=== PATIENT | female | born 1995 | race Caucasian/White ===

== ENCOUNTER 2024-02-19 07:45 | Day surgery (SDC) | payer BC ==
--- NOTE | 2024-02-13 08:18 | NUR ---
PT CALLED AND EXPLAINED THAT SHE THOUGHT HER PRE-ADMIT WAS VIA PHONE. EXPLAINED THAT IT WAS INPERSON. DEHORNER TOLD PT GIVE ME 5 MINUTES AND I GET THE ORDERS AND CALL HER BACK. WHEN CALLED PT BACK PHONE BUSY. TRYED 4 DIFFERENT TIMES AND PHONE REMAINS BUSY. CALL INTO DR MCNAIR OFFICE AND EXPLAINED THE ISSUE. THEY WILL TALK WITH PT AND DEHORNER WILL CONTIOUE TO TRY AND CALL OFFICE AT BEFORE NOON TO LEFT THEM KNOW IF PT WAS REACHED.
--- NOTE | 2024-02-13 08:36 | NUR ---
WAS ABLE TO REACH PT AND COMPLETE PHONE PRE ADMIT. EXPLAINED THAT SHE WILL STILL NEED TO COME TO THE HOSPITAL AND HAVE LABS AND EKG COMPLETED. ALSO THESE NEED TO BE DONE BY THE 24 AND IF NOT ON THE MORING OF SURGERY IF SHE HAS NOT COME INTO THE HOSUITAL SHE WILL NEED TO ARRIVE THE MORNING OF SURGERY AT 07:00 TO HAVE THE LABS AND EKG COMPLETED ON THE 18 OF FEBRUARY.
[~2024-02-19] VITALS: Ht 175.3 cm; Wt 151.4 kg
[~2024-02-19 07:45] MED LIST: ADDERALL 10 MG10 MG PO; CEFAZOLIN SODIUM 3 GM/30 ML SYR IV SCH; HEParin SOD (PORCINE) 5,000 UNIT/0.5 ML SYR SUB-Q SCH; IBLOOD GLUCOSE TEST STRIP 1 EA TEST VI PRN; LACTATED RINGER'S 1,000 ML IV SCH; LIDOCAINE HCL 1% 5 ML SDV INJ ONE; MILI 0.25-0.031 EACH PO; PRILOSEC OTC20 MG PO; SODIUM CHLORIDE 0.9% 40 ML IV ONE; WELLBUTRIN XL300 MG PO; iopamidoL 30 ML VIAL ONE
[2024-02-19 08:11] VITALS: BP 150/89
[2024-02-19] MEDS ORDERED: VENTOLIN HFA18 GM INH (08:16)
[2024-02-19] MEDS ORDERED: ROCURONIUM BROMIDE 50 MG/5 ML SYR ONE ×2 (09:12→10:12)
[2024-02-19] MEDS ORDERED: SUCCINYLCHOLINE IN 0.9% NACL 200 MG/10 ML SYRINGE ONE (09:12)
[2024-02-19] MEDS ORDERED: dexmedeTOMIDine HCl 200 MCG/2 ML VIAL ONE (09:12)
[2024-02-19] MEDS ORDERED: ondansetron HCL 4 MG/2 ML VIAL ONE (09:12)
[2024-02-19] MEDS ORDERED: DEXAMETHASONE SOD PHOS 4 MG/ML VIAL ONE (09:12)
[2024-02-19] MEDS ORDERED: SUGAMMADEX SODIUM 200 MG/2 ML ML ONE (09:12)
[2024-02-19] MEDS ORDERED: KETOROLAC TROMETHAMINE 30 MG/ML VIAL ONE (09:12)
[2024-02-19] MEDS ORDERED: LIDOCAINE HCL 2% 5 ML SDV ONE (09:12)
[2024-02-19] MEDS ORDERED: ACETAMINOPHEN 1,000 MG/100 ML VIAL ONE (09:12)
[2024-02-19] MEDS ORDERED: fentaNYL citrate 100 MCG/2 ML VIAL ONE ×2 (09:12→09:54)
[2024-02-19] MEDS ORDERED: propofoL 200 MG/20 ML VIAL ONE (09:12)
[2024-02-19] MEDS ORDERED: LIDOCAINE HCL 2% 20 MG/ML VIAL INJ ONE (09:13)
[2024-02-19] MEDS ORDERED: MIDAZOLAM HCL 2 MG/2 ML VIAL ONE (09:13)
[2024-02-19] MEDS ORDERED: KETAMINE in NS 50 MG/5 ML SYR ONE (09:13)
[2024-02-19] MEDS ORDERED: SCOPOLAMINE 1 MG/3 DAYS PATCH 1 EACH TDSY ONE (09:23)
[2024-02-19] MEDS ORDERED: ondansetron HCL 4 MG/2 ML VIAL IV PRN (10:00)
[2024-02-19] MEDS ORDERED: droPERidol 5 MG/2 ML VIAL IV PRN (10:00)
[2024-02-19] MEDS ORDERED: HYDROmorphone HCL 1 MG/ML SYR IV PRN (10:00)
[2024-02-19] MEDS ORDERED: PROCHLORPERAZINE EDISYLATE 10 MG/2 ML VIAL IV PRN (10:00)
[2024-02-19] MEDS ORDERED: NALOXONE HCL 0.4 MG SYR IV PRN ×2 (10:00→11:30)
[2024-02-19] MEDS ORDERED: IBLOOD GLUCOSE TEST STRIP 1 EA TEST VI PRN (10:00)
[2024-02-19] MEDS ORDERED: fentaNYL citrate 50 MCG/ML SDV IV PRN (10:00)
[2024-02-19] MEDS ORDERED: LACTATED RINGER'S 1,000 ML IV ONE (10:24)
--- NOTE | 2024-02-19 11:05 | NUR ---
02/19/24 1105 Marianne Chavez 1100-PATIENT ARRIVED TO PACU ON 6L MASK NONAROUSABLE ORAL AIRWAY IN PLACE RR EVEN. HOB ELEVATED. SR. IVF INFUSING. 4 LAP SITES TO ABDOMEN WITH SCANT AMT OF SHADOWING.
[2024-02-19] MEDS ORDERED: OXYCODON-ACETA1 EAC2 PO (11:25)
[2024-02-19] MEDS ORDERED: ACETAMINOPHEN500 MG PO (11:25)
[2024-02-19] MEDS ORDERED: IBUPROFEN600 MG PO (11:25)
[2024-02-19] MEDS ORDERED: ACETAMINOPHEN 500 MG TAB PO PRN (11:30)
[2024-02-19] MEDS ORDERED: OXYCODONE/APAP 7.5/325 TAB PO PRN (11:30)
[2024-02-19] MEDS ORDERED: IBUPROFEN 600 MG TAB PO PRN (11:30)
[2024-02-19] MEDS ORDERED: LACTATED RINGER'S 1,000 ML IV SCH (11:30)
[2024-02-19 11:58] VITALS: BP 124/64
--- NOTE | 2024-02-19 12:07 | NUR ---
1145 PT ARRIVED TO DAY SURGERY FROM PACU VIA STRECHER. PT AWAKE AND ORIENTED, BREATHING EQUAL AND UNLABORED. REPORT TAKEN FROM MICHELLE URBINA. PT REPORTS BEING HOT AND NAUSESOUS. COLD AIR ON PATIENT, AND COLD WASH CLOTH ON PT FOREHEAD. PT ABLE TO AMBULATE TO BATHROOM AND VOID 500 MLS. IV ASSESSED. VITALS TAKEN. 1205 PT IN BED WITH CALL LIGHT WITHIN REACH, ICE WATER AT BEDSIDE, JELLO AT BEDSIDE AND FAMILY AT BEDSIDE. NO FUTHER QUESTIONS AT THIS TIME. PT SPOUSE GIVEN PRESCRIPTION.
[2024-02-19 12:43] VITALS: BP 142/85
--- NOTE | 2024-02-19 12:56 | NUR ---
1245 HOURLY ROUNDING DONE. VITALS TAKEN. PT REPORTS NO NAUSEA. PT REPORTS TOLERABLE 4/10 PAIN. PT HAS MODERATE AMOUNT OF BLEEDING AT SURGICAL SITES, NO FRESH BLEEDING. PT HAS BEEN ABLE TO TOLERATE PO FLUIDS AND JELLO AND ABLE TO VOID. 1255 PT GETTING DRESSED WITH MOTHER'S ASSISTANCE. PT HAS CALL LIGHT WITHIN REACH. PT SPOUSE HAS PRESCRIPTION.
--- NOTE | 2024-02-19 13:10 | NUR ---
1258 IV DISCONTINUED FOR PT DISCHARGE. 1300 PT DISCHARGED FROM DAY SURGERY ROOM 3 VIA WHEELCHAIR TO THE FRONT OF THE HOSPITAL TO PT'S MOTHER'S CAR.
--- NOTE | 2024-02-22 17:49 | PATH ---
[facility] [address] [place], [place] [address] Signed SPECIMEN(S): A GALLBLADDER AND GALLSTONES SPECIMEN SOURCE: A. GALLBLADDER AND GALLSTONES CLINICAL HISTORY: Symptomatic cholelithiasis FINAL PATHOLOGIC DIAGNOSIS: Gallbladder and gallstones: - Chronic calculous cholecystitis. JVR:hamida MICROSCOPIC EXAMINATION: Histologic sections of all submitted blocks are examined by light microscopy. These findings, together with the gross examination, support the pathologic diagnosis. GROSS DESCRIPTION: The specimen, labeled and designated "McMurphy, gallbladder and gallstones," is received in formalin and consists of Specimen: Previously opened gallbladder. Dimensions: 8.5 x 4.0 x 2.0 cm. Serosa: [place]-elizabeth and smooth. Cystic Duct: Unobstructed, margin inked black and shaved. Calculi: Multiple yellow-elizabeth multifaceted calculi (1.0-1.5 cm in greatest dimension, and 6.0 x 6.0 x 2.5 cm in aggregate). Mucosa: [place]-brown and velvety/attenuated. Wall thickness: 0.3-0.5 cm. Lymph node: No pericystic lymph nodes are grossly identified. Additional: None. Tool Programmer sections are submitted in (A1). VB (under the direct supervision of a pathologist) The Gross Description was prepared using a voice recognition system. The report was reviewed for accuracy; however, sound-alike word errors, addition and/or deletions may occur. If there is any question about this report, please contact Client Services. ADDITIONAL NOTES: Immunohistochemical and/or in situ hybridization studies if performed in this case included appropriate positive controls that reacted as expected. This PATIENT NAME: ZBIGNIEW CHRIS PATHOLOGY DATE OF : [birth year] REPORT #: [id number] PHYSICIAN: BRANDIE PATHOLOGY PCP: MARTI PEDERSEN MD REPORT IS CONFIDENTIAL AND NOT TO BE RELEASED WITHOUT AUTHORIZATION [facility] [address] [facility] [place] [address] Signed test was developed and its performance characteristics determined by [facility]. It has not been cleared or approved by the U.S. Food and Drug Administration. The FDA has determined that such clearance or approval is not necessary. This test is used for clinical purposes. It should not be regarded as investigational or for research. [facility] is certified under the Clinical Laboratory Improvement Amendments of 1988 (CLIA) as qualified to perform high complexity clinical laboratory testing. PERFORMING LABORATORY: Technical component was performed by [facility], [address] [place] [id number] (CLIA# [id number]). Professional interpretation was performed by [facility], [address] [place] [id number] (CLIA#: [id number]). Diagnostician: Ritesh Hoffman MD Pathologist Electronically Signed 02/22/2024 Copies: ~ PATIENT NAME: ZBIGNIEW CHRIS PATHOLOGY DATE OF : [birth year] REPORT #: [id number] PHYSICIAN: BRANDIE RICO PCP: MARTI PEDERSEN MD REPORT IS CONFIDENTIAL AND NOT TO BE RELEASED WITHOUT AUTHORIZATION
--- NOTE | 2024-02-23 13:20 | OR ---
[facility] [address] [place], [place] [address] Signed DATE OF OPERATION: 02/19/2024 SURGEON: Allegra Mcnair MD PREOPERATIVE DIAGNOSES: 1. Chronic calculous cholecystitis. 2. Morbid obesity. POSTOPERATIVE DIAGNOSES: 1. Chronic calculous cholecystitis. 2. Morbid obesity. PROCEDURES: 1. Laparoscopic cholecystectomy with intraoperative cholangiogram. 2. Surgeon-directed fluoroscopy. ANESTHESIA: General endotracheal, Stephen Gimenez SENIOR C WEB DEVELOPER and local 10 mL of 0.25% Marcaine with epinephrine. INDICATION: This 29-year-old white woman is a patient of Dr. Marti Chirinos. She has been noted by Dr. Chirinos to have epigastric and generally left upper abdominal pain. The symptoms occur twice a week. The symptoms are worsened with fatty food. She has had similar issues years ago for which upper endoscopy and colonoscopy were performed and were considered normal. She has been taking omeprazole, but with little benefit. She underwent an evaluation at [facility] in the distant past for these symptoms and underlying diagnosis was never defined. The patient recently underwent a gallbladder ultrasound under the direction of Dr. Chirinos performed on December 25, 2023 showing multiple large gallstones without signs of acute calculous cholecystitis. She does have family history of biliary disease including her mother having undergone cholecystectomy (Lou Chris). She is 340 pounds and has a BMI of 50.2. She is admitted at this time to undergo cholecystectomy preferred by a laparoscopic approach. She understands the risk of bleeding, infection, bile duct injury, need for open procedure and most importantly failure to cure her symptoms. Understanding this, she wished to proceed. FINDINGS: The gallbladder was chronically inflamed and somewhat distended. The liver itself was surprisingly normal. Cholangiogram was normal. The gallbladder once excised had multiple dark yellow green multifaceted gallstones. There were no other findings of Electronically Signed By: ALLEGRA MCNAIR MD 02/23/24 1320 PATIENT NAME: ZBIGNIEW CHRIS OPERATIVE REPORT DATE OF : [birth year] REPORT #: [id number] PHYSICIAN: ALLEGRA MCNAIR MD PCP: MARTI CHIRINOS MD REPORT IS CONFIDENTIAL AND NOT TO BE RELEASED WITHOUT AUTHORIZATION [facility] [address] [place], [place] [address] Signed note. PROCEDURE IN DETAIL: The patient was brought to the operating room, given a general endotracheal anesthetic. Preoperative antibiotic Ancef was given. Sequential compression device stockings were used and heparin subcutaneously administered. The abdomen was prepared with chlorhexidine solution and draped sterilely. She had a rather obese abdomen. An infraumbilical incision was made and using an open Meaghan cannula technique, the abdomen was entered and pneumoperitoneum achieved to a level of 14 mmHg of carbon dioxide gas. Intra-abdominal inspection showed no sign of ascites or carcinomatosis. The gallbladder was obscured from view largely. Three additional trocars were placed in usual configuration in the subxiphoid, right midclavicular, and right anterior axillary line. The gallbladder was grasped and elevated cephalad. The liver was surprisingly normal and did not really have much in the way of fatty infiltration and certainly no blunted liver edge. The infundibulum was grasped and retracted laterally and using blunt and electrocautery dissection the triangle of Calot was dissected free ultimately identifying well the cystic duct. A clip was applied across gallbladder cystic duct junction. A transverse choledochotomy was made at the cystic duct. Clips have been applied to few pericholecystic arterial branches. Egress of clear bile was noted from the cystic duct. Using an Severino type cholangiocatheter, intraoperative cholangiography was undertaken showing free flow of contrast in biliary tree with prompt emptying into the duodenum. The cystic duct itself was relatively generous in size. There was no sign of filling defect biliary anomalies or other problem. The catheter was removed. The cystic duct was clipped several times to assure complete occlusion of the duct. The duct was transected and the gallbladder was dissected free in a retrograde fashion using electrocautery. Given her significant abdominal obesity, the gallbladder was placed in an endobag and extracted through the infraumbilical port site and opened on the back table and found to have multiple yellow green multifaceted gallstones. There was no sign of neoplasm. Irrigation was undertaken in the subhepatic space. There was no sign of bile leak, bleeding or other problem. The trocars were removed under direct visualization showing no sign of bleeding. The infraumbilical fascial incision was reapproximated with interrupted 0 Vicryl suture. All wounds were infiltrated with 0.25% Marcaine with epinephrine 10 mL in total. Skin was closed with interrupted 3-0 Vicryl and Steri-Strips were applied. The patient was ultimately extubated and transferred to the recovery room in good condition having suffered no complications. Sponge, needle, and instrument counts reported as correct x3. Allegra Mcnair MD Electronically Signed By: ALLEGRA MCNAIR MD 02/23/24 1320 PATIENT NAME: ZBIGNIEW CHRIS OPERATIVE REPORT DATE OF : [birth year] REPORT #: [id number] PHYSICIAN: ALLEGRA MCNAIR MD PCP: MARTI CHIRINOS MD REPORT IS CONFIDENTIAL AND NOT TO BE RELEASED WITHOUT AUTHORIZATION [facility] [address] [place] [address] Signed /NANCYL /[id number] cc: Marti Chirinos MD Copies: MARTI CHIRINOS MD ~ Electronically Signed By: ALLEGRA MCNAIR MD 02/23/24 1320 PATIENT NAME: ZBIGNIEW CHRIS OPERATIVE REPORT DATE OF : [birth year] REPORT #: [id number] PHYSICIAN: ALLEGRA MCNAIR MD PCP: MARTI CHIRINOS MD REPORT IS CONFIDENTIAL AND NOT TO BE RELEASED WITHOUT AUTHORIZATION
== END 2024-02-19 13:00 | disposition home or self-care (01) ==
LOC: DS 07:45
PROVIDERS: ATTEND Surgery
PROC: 0FT44ZZ Resection of Gallbladder, Percutaneous Endoscopic Approach (ICD-10-PCS; principal; 2024-02-19 10:00)
DX: K81.1 Chronic cholecystitis (principal); E66.01 Morbid (severe) obesity due to excess calories; F32.A Depression, unspecified; Z72.0 Tobacco use; Z68.43 Body mass index [BMI] 50.0-59.9, adult; Z88.0 Allergy status to penicillin
CPT/HCPCS: 00790; 74300; 84703; J0131; J0330; J0690; J1100; J1644; J1885; J2001; J2250; J2405; J2704; J3010; J3490; J7121; Q9967